=== PATIENT | female | born 1990 | race Native Hawaiian/Other Pacific Islander ===

== ENCOUNTER 2017-03-14 12:56 | Emergency (ER) | payer OTHER ==
[~2017-03-14] VITALS: Ht 157.5 cm; Wt 71.0 kg
[2017-03-14 12:59] VITALS: BP 119/72; PULSE 98; RESP 18; TEMP 98.6; O2SAT 100
--- NOTE | 2017-03-14 14:00 | PD ---
HPI Chief Complaint: Hvac Controls Technician Problem/Complaint Time Seen by Provider: 13:44 Travel History International Travel<30 days: No Contact w/Intl Traveler<30days: No Traveled to known affect area: No History of Present Illness HPI This is a 27-year-old female who presents to the emergency department with left lower quadrant abdominal pain that's been present for 7 months, constant, moderate severity having worsening over the past 2 days radiating to her flank now. She also reports urinary urgency and frequency. She denies any vaginal discharge or vaginal bleeding. She's been seen a back line cook and she had a laparoscopy for possible endometriosis and she was told that was normal. She subsequently had an ultrasound that demonstrated multiple ovarian cysts. She's had an ectopic in the past. She says she feels nauseous but hasn't vomited. PFSH Past Medical History Medical History: Denies Significant Hx ?: Unknown LMP: last month Social History Tobacco Use: No Allergies-Medications (Allergen,Severity, Reaction): Coded Allergies: No Known Allergies (Unverified , 03/14/17) Reported Meds & Prescriptions Reported Meds & Active Scripts Active Reported [ Control ] Review of Systems Except as stated in HPI: all other systems reviewed are Neg Physical Exam Narrative GENERAL:Well appearing, no acute distress SKIN: Focused skin assessment warm and dry. HEAD: Atraumatic. Normocephalic. EYES: Pupils equal and round. No injection or drainage. ENT: Moist mucous membranes NECK: Trachea midline. CARDIOVASCULAR: Regular rate and rhythm. No murmur appreciated. RESPIRATORY: Clear to auscultation. Breath sounds equal bilaterally. GASTROINTESTINAL: Abdomen soft, tender to palpation in the left lower quadrant with no rebound or guarding. ROAD CROSSING GUARD: No cervical motion tenderness or adnexal tenderness, no vaginal discharge MUSCULOSKELETAL: No obvious deformities. NEUROLOGICAL: Awake and alert. No obvious cranial nerve deficits. Moving all extremities. PSYCHIATRIC: Appropriate mood and affect; insight and judgment normal. Data Data Last Documented VS Vital Signs Date Time Temp Pulse Resp B/P (MAP) Pulse Ox O2 Delivery O2 Flow Rate FiO2 03/14/17 12:59 98.6 98 18 119/72 (88) 100 Room Air Orders Orders Complete Blood Count With Diff (03/14/17 13:55) Comprehensive Metabolic Panel (03/14/17 13:55) Ct Abd/Pel W/O Iv Contrast (03/14/17 ) Urinalysis - C+S If Indicated (03/14/17 13:55) Wet Prep Profile (03/14/17 13:55) Gc And Chlamydia Pcr (03/14/17 13:55) Ed Urine Pregnancytest Poc (03/14/17 13:55) Ketorolac Inj (Toradol Inj) (03/14/17 14:30) Ondansetron Inj (Zofran Inj) (03/14/17 14:30) Sodium Chlor 0.9% 1000 Ml Inj (Ns 1000 M (03/14/17 14:30) Labs Laboratory Tests Test 03/14/17 14:05 03/14/17 14:10 White Blood Count 8.8 TH/MM3 Red Blood Count 4.59 MIL/MM3 Hemoglobin 12.8 GM/DL Hematocrit 38.7 % Mean Corpuscular Volume 84.4 FL Mean Corpuscular Hemoglobin 27.9 PG Mean Corpuscular Hemoglobin Concent 33.0 % Red Cell Distribution Width 13.3 % Platelet Count 354 TH/MM3 Mean Platelet Volume 7.7 FL Neutrophils (%) (Auto) 56.1 % Lymphocytes (%) (Auto) 33.0 % Monocytes (%) (Auto) 6.4 % Eosinophils (%) (Auto) 3.4 % Basophils (%) (Auto) 1.1 % Neutrophils # (Auto) 5.0 TH/MM3 Lymphocytes # (Auto) 2.9 TH/MM3 Monocytes # (Auto) 0.6 TH/MM3 Eosinophils # (Auto) 0.3 TH/MM3 Basophils # (Auto) 0.1 TH/MM3 CBC Comment DIFF FINAL Differential Comment Urine Color YELLOW Urine Turbidity HAZY Urine pH 6.5 Urine Specific [place] 1.030 Urine Protein 30 mg/dL Urine Glucose (UA) NEG mg/dL Urine Ketones NEG mg/dL Urine Occult Blood NEG Urine Nitrite NEG Urine Bilirubin NEG Urine Urobilinogen 2.0 MG/DL Urine Leukocyte Esterase NEG Urine RBC 8 /hpf Urine WBC 3 /hpf Urine Squamous Epithelial Cells 4 /hpf Urine Calcium Oxalate Crystals MANY /hpf Urine Mucus MANY /lpf Microscopic Urinalysis Comment CULT NOT INDICATED Blood Urea Nitrogen 9 MG/DL Creatinine 0.85 MG/DL Random Glucose 83 MG/DL Total Protein 7.4 GM/DL Albumin 3.5 GM/DL Calcium Level 8.7 MG/DL Alkaline Phosphatase 66 U/L Aspartate Amino Transf (AST/SGOT) 17 U/L Alanine Aminotransferase (ALT/SGPT) 39 U/L Total Bilirubin 0.4 MG/DL Sodium Level 140 MEQ/L Potassium Level 3.8 MEQ/L Chloride Level 109 MEQ/L Carbon Dioxide Level 24.9 MEQ/L Anion Gap 6 MEQ/L Estimat Glomerular Filtration Rate 81 ML/MIN Clue Cells (Wet Prep) NONE SEEN Vaginal Trichomonas (Wet Prep) NONE SEEN Vaginal Yeast (Wet Prep) NONE SEEN MDM Medical Decision Making Medical Screen Exam Complete: Yes Emergency Medical Condition: Yes Interpretation(s) Afebrile, mild tachycardia, normotensive No leukocytosis Electrolytes are reassuring Urinalysis: No infection wet prep negative for trichomonas and yeast Differential Diagnosis No leukocytosis Electrolytes within normal limits Urinalysis: Calcium oxalate crystals, mucus and red blood cells Trichomonas is negative Yeast is negative Last 24 hours Impressions Abdomen/Pelvis CT 03/14/17 0000 Signed Impressions: Service Date/Time: , March 14, 2017 14:46 - CONCLUSION: Essentially unremarkable study. Dani Zaragoza MD Narrative Course This is a 27-year-old female who presents to the emergency department with left- sided abdominal pain that radiates to the back, its been going on since August but has been worse over the past 2 days. She does look uncomfortable on exam. Pelvic exam is reassuring. Labs are all normal. Urinalysis is negative for infection. CT abdomen and pelvis is unremarkable. I'm not sure what causing this patient's chronic abdominal pain. She's had a full ROAD CROSSING GUARD workup it might be reasonable for her to follow-up with a drill press operator. Patient was discharged on anti-inflammatories. Diagnosis Primary Impression: Chronic pelvic pain in female Patient Instructions: General Instructions Additional Instructions: If you develop severe or worsening abdominal pain, fever>100.4, persistent vomiting or inability to eat or drink return to the emergency department immediately. Follow up with your primary care physician in 1-2 days for a check-up. Med/Other Pt SpecificInfo: Prescription(s) given, No Change to Meds Scripts Naproxen (Naproxen) 500 Mg Tab 500 MG PO BID Y for PAIN SCALE 4 TO 10, #20 TAB 0 Refills Prov: Radha Matias MD 03/14/17 Disposition: 01 DISCHARGE HOME Condition: Stable Radha Matias MD Mar 14, 2017 14:00
[2017-03-14] MEDS ORDERED: BIRTH CONTROL (14:17)
[2017-03-14 14:18] VITALS: BP 121/75; PULSE 97; RESP 17; O2SAT 97
[2017-03-14 14:29] LABS: BASOPHIL # 0.1 TH/MM3 (0-0.2); BASOPHIL % 1.1 % (0.0-2.0); EOSINOPHIL # 0.3 TH/MM3 (0-0.4); EOSINOPHIL % 3.4 % (0.0-4.0); HEMATOCRIT 38.7 % (35.0-46.0); HEMO FLAGS DIFF FINAL; LYMPHOCYTE # 2.9 TH/MM3 (1.0-4.8); MEAN CELL VOLUME 84.4 FL (80.0-100.0); MEAN CORPUSCULAR HEMOGLOBIN 27.9 PG (27.0-34.0); MONO % 6.4 % (0.0-8.0); NEUT % 56.1 % (16.0-70.0); PLATELET COUNT 354 TH/MM3 (150-450); RED BLOOD COUNT 4.59 MIL/MM3 (4.00-5.30); RED CELL DISTRIBUTION WIDTH 13.3 % (11.6-17.2); WHITE BLOOD COUNT 8.8 TH/MM3 (4.0-11.0)
[2017-03-14] MEDS ORDERED: ONDANSETRON HCL 4 MG/2 ML VIAL IV ONE (14:30)
[2017-03-14] MEDS ORDERED: SODIUM CHLOR 0.9% 1000 ML INJ 1,000 ML IV SCH (14:30)
[2017-03-14] MEDS ORDERED: KETOROLAC TROMETHAMINE 30 MG/ML (IVP) VIAL IV PUSH ONE (14:30)
[2017-03-14 14:48] LABS: ALT (GPT) 39 U/L (10-53); ANION GAP 6 MEQ/L (5-15); AST (GOT) 17 U/L (15-37); BICARBONATE 24.9 MEQ/L (21.0-32.0); BLOOD UREA NITROGEN 9 MG/DL (7-18); CHLORIDE 109 MEQ/L (98-107); GLOMERULAR FILTRATION RATE 81 ML/MIN (>89); POTASSIUM 3.8 MEQ/L (3.5-5.1); SODIUM (NA) 140 MEQ/L (136-145)
[2017-03-14 14:51] LABS: ALKALINE PHOSPHATASE 66 U/L (45-117); TOTAL BILIRUBIN ADULT 0.4 MG/DL (0.2-1.0)
[2017-03-14 15:05] LABS: BLOOD, URINE NEG (NEG); CALCIUM OXALATE CRYSTALS,URINE MANY /hpf; COMMENT (UR) CULT NOT INDICATED; CULTURE IF INDICATED CULT NOT INDICATED; GLUCOSE,URINE NEG (NEG); KETONE, URINE NEG (NEG); MUCUS URINE MANY /lpf (OCC); NITRITE,URINE NEG (NEG); PH, URINE 6.5 (5.0-8.5); SQUAMOUS EPITHELIAL CELL URINE 4 /hpf (0-5); URINE COLOR YELLOW (YELLW/STRAW)
--- NOTE | 2017-03-14 15:07 | RADRPT ---
EXAM DATE/TIME: 03/14/2017 14:46 [facility] COMPARISON: No previous studies available for comparison. INDICATIONS : Left side abdominal pain ORAL CONTRAST: No oral contrast ingested. RADIATION DOSE: 7.51 CTDIvol (mGy) MEDICAL HISTORY : None SURGICAL HISTORY : None. ENCOUNTER: Initial ACUITY: 2 days PAIN SCALE: 5/10 LOCATION: Left flank TECHNIQUE: Volumetric scanning of the abdomen and pelvis was performed. Using automated exposure control and ad justment of the mA and/or kV according to patient size, radiation dose was kept as low as reasonably achievable to obtain optimal diagnostic quality images. DICOM format image data is available electro nically for review and comparison. FINDINGS: CT Abdomen: The liver, spleen, pancreas, kidneys, adrenals are unremarkable. There is no evidence for any appreciable pathological adenopathy, free fluid, or bowel obstruction. There is no evidence for any stones in the kidneys or the course of the ureters on either side. There is no hydronephrosis. CT pelvis: There is no evidence for mass, abscess formation, or any significant adenopathy within the pelvis. CONCLUSION: Essentially unremarkable study. Dani Zaragoza MD on March 14, 2017 at 15:00 Board Certified Radiologist. This report was verified electronically.
[2017-03-14] MEDS ORDERED: NAPR500T PO (15:34)
[2017-03-14 16:03] VITALS: BP 118/74
[2017-03-15 03:16] LABS: CHLAMYDIA PCR NOT DETECTED (NOT DETECT); NEISSERIA PCR NOT DETECTED (NOT DETECT)
== END 2017-03-14 15:56 | disposition home or self-care (01) ==
LOC: NEPD 12:56
DX: R10.2 Pelvic and perineal pain (principal); G89.29 Other chronic pain; R35.0 Frequency of micturition
CPT/HCPCS: 74176; 80053; 81001; 84703; 85025; 87210; 87491; 87591; 96361; 96374; 96375; 99285; J1885; J2405; J7030

== ENCOUNTER 2017-07-27 19:02 | Emergency (ER) | payer OTHER ==
[~2017-07-27] VITALS: Ht 157.5 cm; Wt 65.0 kg
[~2017-07-27 19:02] MED LIST: BIRTH CONTROL; NAPR500T2 PO
[2017-07-27] MEDS ORDERED: IOHEXOL 350 MG/ML 10 ML VIAL (for RAD DIAG) IVCONTRAST ONE (19:03)
[2017-07-27 19:16] VITALS: BP 121/72; PULSE 76; RESP 16; TEMP 96.6; O2SAT 98
[2017-07-27] MEDS ORDERED: PANTOPRAZOLE SODIUM 40 MG VIAL IV PUSH ONE (19:45)
[2017-07-27] MEDS ORDERED: ONDANSETRON HCL 4 MG/2 ML VIAL IV PUSH ONE (19:45)
[2017-07-27 19:47] VITALS: BP_SYST 117; BP_DIAS 14; BP_DIAS 74; PULSE 78; RESP 16; O2SAT 99
[2017-07-27 20:01] LABS: BACTERIA, URINE OCC /hpf; BILIRUBIN, URINE SMALL (NEG); BLOOD, URINE NEG (NEG); GLUCOSE,URINE NEG (NEG); KETONE, URINE 40 mg/dL (NEG); MUCUS URINE MANY /lpf (OCC); NITRITE,URINE NEG (NEG); PH, URINE 5.5 (5.0-8.5); SQUAMOUS EPITHELIAL CELL URINE 1 /hpf (0-5); URINE COLOR YELLOW (YELLW/STRAW); URINE LEUKOCYTE ESTERASE NEG (NEG)
[2017-07-27] MEDS ORDERED: SODIUM CHLOR 0.9% 1000 ML INJ 1,000 ML IV SCH (20:11)
[2017-07-27] MEDS ORDERED: MORPHINE SULFATE 4 MG/ML INJ IV PUSH ONE (20:15)
--- NOTE | 2017-07-27 20:18 | PD ---
HPI Chief Complaint: GI Complaint Time Seen by Provider: 19:24 Travel History International Travel<30 days: No Contact w/Intl Traveler<30days: No Traveled to known affect area: No History of Present Illness HPI 27-year-old female presents to emergency department complaining of vomiting for 1 week and diarrhea for 2 weeks. Patient states that on July 17 she vomited bright red blood but has not seen blood since. Patient describes her diarrhea as "spongy" in nonbloody. Patient denies hematochezia or melena. Patient states she has felt feverish recently. Says she has upper abdominal pain an lower pelvic pain that radiates to the symphysis pubis in genital region. Nothing seems to improve or relieve her pain. Says she had laparoscopic surgery at the end of June for ovarian cysts and endometriosis. Patient states that she had abdominal pain after the surgery he does not know if this a continuation of that pain. Patient had this procedure done at [facility] in [place]. Patient has not followed a primary care physician was not followed up with another physician for this problem. Patient takes metformin for PCO S but denies chronic medical issues. Patient denies recent travel, antibiotic use, new medications, new foods. PFSH Past Medical History Asthma: Yes Hypertension: Yes Reproductive: Yes (OVARIAN CYSTS, ENDOMETRIOSIS) Immunizations Current: Yes Tetanus Vaccination: < 5 Years Influenza Vaccination: No ?: Unknown LMP: 07/21/17 Past Surgical History Abdominal Surgery: Yes (EX LAP) Social History Alcohol Use: Yes (occ) Tobacco Use: Yes (occ) Substance Use: Yes (MARIJUANA) Allergies-Medications (Allergen,Severity, Reaction): Coded Allergies: aspirin (Verified Allergy, Severe, Anaphylaxis, 07/27/17) penicillin G (Verified Allergy, Severe, Anaphylaxis, 07/27/17) No Known Allergies (Unverified Allergy, Unknown, 07/27/17) Reported Meds & Prescriptions Reported Meds & Active Scripts Active Pepcid (Famotidine) 20 Mg Tab 20 Mg PO BID Zofran Odt (Ondansetron Odt) 4 Mg Tab 4 Mg SL Q8HR PRN Naproxen 500 Mg Tab 500 Mg PO BID PRN Reported [ Control ] Review of Systems Except as stated in HPI: all other systems reviewed are Neg Physical Exam Narrative GENERAL: Well-developed well-nourished in mild distress SKIN: Focused skin assessment warm/dry. Well healing lesion to the umbilical consistent with patient's recent laparoscopic surgery HEAD: Atraumatic. Normocephalic. EYES: Pupils equal and round. No scleral icterus. No injection or drainage. ENT: No nasal bleeding or discharge. Mucous membranes pink and moist. NECK: Trachea midline. No JVD. CARDIOVASCULAR: Regular rate and rhythm. No murmur appreciated. RESPIRATORY: No accessory muscle use. Clear to auscultation. Breath sounds equal bilaterally. GASTROINTESTINAL: Abdomen soft, non-tender, nondistended. Mild TTP midepigastric and lower pelvic region MUSCULOSKELETAL: No obvious deformities. No clubbing. No cyanosis. No edema. No CVA tenderness NEUROLOGICAL: Awake and alert. No obvious cranial nerve deficits. Motor grossly within normal limits. Normal speech. PSYCHIATRIC: Appropriate mood and affect; insight and judgment normal. Data Data Last Documented VS Vital Signs Date Time Temp Pulse Resp B/P (MAP) Pulse Ox O2 Delivery O2 Flow Rate FiO2 07/28/17 02:49 07/28/17 01:17 68 14 07/27/17 23:04 99 Room Air 07/27/17 19:16 96.6 Orders Orders Urinalysis - C+S If Indicated (07/27/17 19:31) Ed Urine Pregnancytest Poc (07/27/17 19:31) Ondansetron Inj (Zofran Inj) (07/27/17 19:45) Pantoprazole Inj (Protonix Inj) (07/27/17 19:45) Complete Blood Count With Diff (07/27/17 20:11) Comprehensive Metabolic Panel (07/27/17 20:11) Lipase (07/27/17 20:11) Prothrombin Time / Inr (Pt) (07/27/17 20:11) Act Partial Throm Time (Ptt) (07/27/17 20:11) Ct Abd/Pel W Iv Contrast(Rout) (07/27/17 20:11) Morphine Inj (Morphine Inj) (07/27/17 20:15) Sodium Chlor 0.9% 1000 Ml Inj (Ns 1000 M (07/27/17 20:11) Electrocardiogram (07/27/17 20:11) Influenzae A/B Antigen (07/27/17 20:20) Promethazine Inj (Phenergan Inj) (07/27/17 23:00) Iohexol 350 Inj (Omnipaque 350 Inj) (07/27/17 19:03) Sodium Chlor 0.9% 1000 Ml Inj (Ns 1000 M (07/28/17 01:15) Ed Discharge Order (07/28/17 02:32) Labs Laboratory Tests Test 07/27/17 19:43 07/27/17 20:39 Urine Color YELLOW Urine Turbidity CLEAR Urine pH 5.5 Urine Specific [place] 1.027 Urine Protein 30 mg/dL Urine Glucose (UA) NEG mg/dL Urine Ketones 40 mg/dL Urine Occult Blood NEG Urine Nitrite NEG Urine Bilirubin SMALL Urine Urobilinogen 2.0 MG/DL Urine Leukocyte Esterase NEG Urine RBC 1 /hpf Urine WBC 1 /hpf Urine Squamous Epithelial Cells 1 /hpf Urine Bacteria OCC /hpf Urine Mucus MANY /lpf Microscopic Urinalysis Comment CULT NOT INDICATED White Blood Count 9.1 TH/MM3 Red Blood Count 5.01 MIL/MM3 Hemoglobin 13.8 GM/DL Hematocrit 42.0 % Mean Corpuscular Volume 83.8 FL Mean Corpuscular Hemoglobin 27.5 PG Mean Corpuscular Hemoglobin Concent 32.8 % Red Cell Distribution Width 14.3 % Platelet Count 270 TH/MM3 Mean Platelet Volume 8.3 FL Neutrophils (%) (Auto) 48.9 % Lymphocytes (%) (Auto) 41.8 % Monocytes (%) (Auto) 5.7 % Eosinophils (%) (Auto) 2.8 % Basophils (%) (Auto) 0.8 % Neutrophils # (Auto) 4.5 TH/MM3 Lymphocytes # (Auto) 3.8 TH/MM3 Monocytes # (Auto) 0.5 TH/MM3 Eosinophils # (Auto) 0.3 TH/MM3 Basophils # (Auto) 0.1 TH/MM3 CBC Comment DIFF FINAL Differential Comment Prothrombin Time 10.4 SEC Prothromb Time International Ratio 1.0 RATIO Activated Partial Thromboplast Time 22.4 SEC Blood Urea Nitrogen 10 MG/DL Creatinine 0.89 MG/DL Random Glucose 74 MG/DL Total Protein 8.0 GM/DL Albumin 4.2 GM/DL Calcium Level 9.6 MG/DL Alkaline Phosphatase 86 U/L Aspartate Amino Transf (AST/SGOT) 20 U/L Alanine Aminotransferase (ALT/SGPT) 24 U/L Total Bilirubin 0.7 MG/DL Sodium Level 140 MEQ/L Potassium Level 3.8 MEQ/L Chloride Level 105 MEQ/L Carbon Dioxide Level 25.1 MEQ/L Anion Gap 10 MEQ/L Estimat Glomerular Filtration Rate 77 ML/MIN Lipase 103 U/L [facility] Medical Decision Making Medical Screen Exam Complete: Yes Emergency Medical Condition: Yes Differential Diagnosis C. difficile, traveler's diarrhea, influenza, abdominal abscess, rival syndrome Narrative Course 27-year-old female presents to emergency department complaining of vomiting for 1 week and diarrhea for 2 weeks. Patient states that on July 17 she vomited bright red blood but has not seen blood since. Patient describes her diarrhea as "spongy" in nonbloody. Patient denies hematochezia or melena. Patient states she has felt feverish recently. Says she has upper abdominal pain an lower pelvic pain that radiates to the symphysis pubis in genital region. Nothing seems to improve or relieve her pain. Says she had laparoscopic surgery at the end of June for ovarian cysts and endometriosis. Patient states that she had abdominal pain after the surgery he does not know if this a continuation of that pain. Patient had this procedure done at [facility] in [place]. Patient has not followed a primary care physician was not followed up with another physician for this problem. Patient takes metformin for PCO S but denies chronic medical issues. Patient denies recent travel, antibiotic use, new medications, new foods. Vital signs stable. Patient received Zofran, Phenergan, morphine, Protonix in the emergency department today. She also received IV fluids. Laboratory Tests Test 07/27/17 19:43 07/27/17 20:39 Urine Color YELLOW Urine Turbidity CLEAR Urine pH 5.5 Urine Specific [place] 1.027 Urine Protein 30 mg/dL Urine Glucose (UA) NEG mg/dL Urine Ketones 40 mg/dL Urine Occult Blood NEG Urine Nitrite NEG Urine Bilirubin SMALL Urine Urobilinogen 2.0 MG/DL Urine Leukocyte Esterase NEG Urine RBC 1 /hpf Urine WBC 1 /hpf Urine Squamous Epithelial Cells 1 /hpf Urine Bacteria OCC /hpf Urine Mucus MANY /lpf Microscopic Urinalysis Comment CULT NOT INDICATED White Blood Count 9.1 TH/MM3 Red Blood Count 5.01 MIL/MM3 Hemoglobin 13.8 GM/DL Hematocrit 42.0 % Mean Corpuscular Volume 83.8 FL Mean Corpuscular Hemoglobin 27.5 PG Mean Corpuscular Hemoglobin Concent 32.8 % Red Cell Distribution Width 14.3 % Platelet Count 270 TH/MM3 Mean Platelet Volume 8.3 FL Neutrophils (%) (Auto) 48.9 % Lymphocytes (%) (Auto) 41.8 % Monocytes (%) (Auto) 5.7 % Eosinophils (%) (Auto) 2.8 % Basophils (%) (Auto) 0.8 % Neutrophils # (Auto) 4.5 TH/MM3 Lymphocytes # (Auto) 3.8 TH/MM3 Monocytes # (Auto) 0.5 TH/MM3 Eosinophils # (Auto) 0.3 TH/MM3 Basophils # (Auto) 0.1 TH/MM3 CBC Comment DIFF FINAL Differential Comment Prothrombin Time 10.4 SEC Prothromb Time International Ratio 1.0 RATIO Activated Partial Thromboplast Time 22.4 SEC Blood Urea Nitrogen 10 MG/DL Creatinine 0.89 MG/DL Random Glucose 74 MG/DL Total Protein 8.0 GM/DL Albumin 4.2 GM/DL Calcium Level 9.6 MG/DL Alkaline Phosphatase 86 U/L Aspartate Amino Transf (AST/SGOT) 20 U/L Alanine Aminotransferase (ALT/SGPT) 24 U/L Total Bilirubin 0.7 MG/DL Sodium Level 140 MEQ/L Potassium Level 3.8 MEQ/L Chloride Level 105 MEQ/L Carbon Dioxide Level 25.1 MEQ/L Anion Gap 10 MEQ/L Estimat Glomerular Filtration Rate 77 ML/MIN Lipase 103 U/L Labs appears stable. CT and dispo pending as of transfer of care to Dr. Hicks. Please see his note for more information. Scripts Famotidine (Pepcid) 20 Mg Tab 20 MG PO BID, #60 TAB 0 Refills Prov: Edis Hicks MD 07/28/17 Ondansetron Odt (Zofran Odt) 4 Mg Tab 4 MG SL Q8HR Y for Nausea/Vomiting, #30 TAB 0 Refills Prov: Edis Hicks MD 07/28/17 Condition: Stable Hetal Slater Jul 27, 2017 20:18
[2017-07-27 21:10] LABS: AUTOMATED NEUTROPHIL # 4.5 TH/MM3 (1.8-7.7); BASOPHIL # 0.1 TH/MM3 (0-0.2); BASOPHIL % 0.8 % (0.0-2.0); EOSINOPHIL # 0.3 TH/MM3 (0-0.4); EOSINOPHIL % 2.8 % (0.0-4.0); HEMOGLOBIN 13.8 GM/DL (11.6-15.3); LYMPH % 41.8 % (9.0-44.0); LYMPHOCYTE # 3.8 TH/MM3 (1.0-4.8); MEAN CELL VOLUME 83.8 FL (80.0-100.0); MEAN CORPUSCULAR HEMOGLOBIN 27.5 PG (27.0-34.0); MEAN CORPUSCULAR HGB CONC 32.8 % (32.0-36.0); MEAN PLATELET VOLUME 8.3 FL (7.0-11.0); MONO % 5.7 % (0.0-8.0); MONOCYTE # 0.5 TH/MM3 (0-0.9); NEUT % 48.9 % (16.0-70.0); PLATELET COUNT 270 TH/MM3 (150-450); RED BLOOD COUNT 5.01 MIL/MM3 (4.00-5.30); RED CELL DISTRIBUTION WIDTH 14.3 % (11.6-17.2); WHITE BLOOD COUNT 9.1 TH/MM3 (4.0-11.0)
[2017-07-27 21:23] LABS: PROTHROMBIN TIME - PATIENT 10.4 SEC (9.8-11.6)
[2017-07-27 21:30] LABS: ALBUMIN 4.2 GM/DL (3.4-5.0); ALKALINE PHOSPHATASE 86 U/L (45-117); ALT (GPT) 24 U/L (10-53); AST (GOT) 20 U/L (15-37); BICARBONATE 25.1 MEQ/L (21.0-32.0); BLOOD UREA NITROGEN 10 MG/DL (7-18); CALCIUM 9.6 MG/DL (8.5-10.1); CHLORIDE 105 MEQ/L (98-107); CREATININE 0.89 MG/DL (0.50-1.00); GLOMERULAR FILTRATION RATE 77 ML/MIN (>89); GLUCOSE,RANDOM 74 MG/DL (74-106); LIPASE 103 U/L (73-393); SODIUM (NA) 140 MEQ/L (136-145); TOTAL BILIRUBIN ADULT 0.7 MG/DL (0.2-1.0)
[2017-07-27 22:00] VITALS: BP 98/64; PULSE 72; RESP 16; O2SAT 98
[2017-07-27] MEDS ORDERED: PROMETHAZINE INJ 25 MG/ML VIAL IV-CENTRAL ONE (23:00)
[2017-07-27 23:04] VITALS: BP 105/68; PULSE 73; RESP 16; O2SAT 99
--- NOTE | 2017-07-28 00:24 | RADRPT ---
EXAM DATE/TIME: 07/27/2017 23:55 [facility] COMPARISON: CT ABDOMEN & PELVIS W/O CONTRAST, March 14, 2017, 14:46. INDICATIONS : Abdomen pain with vomiting. IV CONTRAST: 90 cc Omnipaque 350 (iohexol) IV ORAL CONTRAST: No oral contrast ingested. RADIATION DOSE: 8.62 CTDIvol (mGy) MEDICAL HISTORY : Hypertension. Asthma SURGICAL HISTORY : None. ENCOUNTER: Initial ACUITY: 1 week PAIN SCALE: 5/10 LOCATION: Bilateral abdomen TECHNIQUE: Volumetric scanning of the abdomen and pelvis was performed. Using automated exposure control and ad justment of the mA and/or kV according to patient size, radiation dose was kept as low as reasonably achievable to obtain optimal diagnostic quality images. DICOM format image data is available electro nically for review and comparison. FINDINGS: LOWER LUNGS: The visualized lower lungs are clear. LIVER: Homogeneous density without lesion. There is no dilation of the biliary tree. No calcified gallston es. SPLEEN: Normal size without lesion. PANCREAS: Within normal limits. KIDNEYS: Normal in size and shape. There is no mass, stone or hydronephrosis. ADRENAL GLANDS: Within normal limits. VASCULAR: There is no aortic aneurysm. BOWEL/MESENTERY: The stomach, small bowel, and colon demonstrate no acute abnormality. There is no free intraperitone al air or fluid. ABDOMINAL WALL: Within normal limits. RETROPERITONEUM: There is no lymphadenopathy. BLADDER: No wall thickening or mass. REPRODUCTIVE: Within normal limits. INGUINAL: There is no lymphadenopathy or hernia. MUSCULOSKELETAL: Within normal limits for patient age. CONCLUSION: Normal examination. Mikhail Rodrigez MD on July 28, 2017 at 0:18 Board Certified Radiologist. This report was verified electronically.
[2017-07-28] MEDS ORDERED: SODIUM CHLOR 0.9% 1000 ML INJ 1,000 ML IV ONE (01:15)
[2017-07-28 01:17] VITALS: BP 91/50; PULSE 68; RESP 14
[2017-07-28] MEDS ORDERED: ZOFR4TAB3 SL (02:32)
[2017-07-28] MEDS ORDERED: FAMO1TAB37 PO (02:32)
--- NOTE | 2017-07-28 02:32 | PD ---
Physical Exam Narrative Patient signed out to me at shift change by NAILA Fong, pending CT abdomen and pelvis. Patient has a history of having diarrhea for the past 3 weeks, patient' s significant other has diarrhea predating that for at least a month. Patient has no history of antibiotic use, no international travel. Patient significant other diarrhea sounds very similar to this patient's presentation. Patient did have a vomiting episode with some blood production on July 13, has vomited since but has not had any hematemesis. Patient has had no melena or hematochezia by history. Laboratory examinations reviewed, no significant abnormalities. CT abdomen and pelvis as read by radiology has no significant abnormalities. Patient received IV fluids, is now tolerating by mouth and feels largely improved. Prolonged discussion with patient and patient's significant other, patient will be given materials to collect stool at home for stool O&P and culture as an outpatient. No current treatment indicated. Data Data Last Documented VS Vital Signs Date Time Temp Pulse Resp B/P (MAP) Pulse Ox O2 Delivery O2 Flow Rate FiO2 07/28/17 01:17 68 14 91/50 (64) 07/27/17 23:04 99 Room Air 07/27/17 19:16 96.6 Orders Orders Urinalysis - C+S If Indicated (07/27/17 19:31) Ed Urine Pregnancytest Poc (07/27/17 19:31) Ondansetron Inj (Zofran Inj) (07/27/17 19:45) Pantoprazole Inj (Protonix Inj) (07/27/17 19:45) Complete Blood Count With Diff (07/27/17 20:11) Comprehensive Metabolic Panel (07/27/17 20:11) Lipase (07/27/17 20:11) Prothrombin Time / Inr (Pt) (07/27/17 20:11) Act Partial Throm Time (Ptt) (07/27/17 20:11) Ct Abd/Pel W Iv Contrast(Rout) (07/27/17 20:11) Morphine Inj (Morphine Inj) (07/27/17 20:15) Sodium Chlor 0.9% 1000 Ml Inj (Ns 1000 M (07/27/17 20:11) Electrocardiogram (07/27/17 20:11) Influenzae A/B Antigen (07/27/17 20:20) Promethazine Inj (Phenergan Inj) (07/27/17 23:00) Iohexol 350 Inj (Omnipaque 350 Inj) (07/27/17 19:03) Sodium Chlor 0.9% 1000 Ml Inj (Ns 1000 M (07/28/17 01:15) Labs Laboratory Tests Test 07/27/17 19:43 07/27/17 20:39 Urine Color YELLOW Urine Turbidity CLEAR Urine pH 5.5 Urine Specific [place] 1.027 Urine Protein 30 mg/dL Urine Glucose (UA) NEG mg/dL Urine Ketones 40 mg/dL Urine Occult Blood NEG Urine Nitrite NEG Urine Bilirubin SMALL Urine Urobilinogen 2.0 MG/DL Urine Leukocyte Esterase NEG Urine RBC 1 /hpf Urine WBC 1 /hpf Urine Squamous Epithelial Cells 1 /hpf Urine Bacteria OCC /hpf Urine Mucus MANY /lpf Microscopic Urinalysis Comment CULT NOT INDICATED White Blood Count 9.1 TH/MM3 Red Blood Count 5.01 MIL/MM3 Hemoglobin 13.8 GM/DL Hematocrit 42.0 % Mean Corpuscular Volume 83.8 FL Mean Corpuscular Hemoglobin 27.5 PG Mean Corpuscular Hemoglobin Concent 32.8 % Red Cell Distribution Width 14.3 % Platelet Count 270 TH/MM3 Mean Platelet Volume 8.3 FL Neutrophils (%) (Auto) 48.9 % Lymphocytes (%) (Auto) 41.8 % Monocytes (%) (Auto) 5.7 % Eosinophils (%) (Auto) 2.8 % Basophils (%) (Auto) 0.8 % Neutrophils # (Auto) 4.5 TH/MM3 Lymphocytes # (Auto) 3.8 TH/MM3 Monocytes # (Auto) 0.5 TH/MM3 Eosinophils # (Auto) 0.3 TH/MM3 Basophils # (Auto) 0.1 TH/MM3 CBC Comment DIFF FINAL Differential Comment Prothrombin Time 10.4 SEC Prothromb Time International Ratio 1.0 RATIO Activated Partial Thromboplast Time 22.4 SEC Blood Urea Nitrogen 10 MG/DL Creatinine 0.89 MG/DL Random Glucose 74 MG/DL Total Protein 8.0 GM/DL Albumin 4.2 GM/DL Calcium Level 9.6 MG/DL Alkaline Phosphatase 86 U/L Aspartate Amino Transf (AST/SGOT) 20 U/L Alanine Aminotransferase (ALT/SGPT) 24 U/L Total Bilirubin 0.7 MG/DL Sodium Level 140 MEQ/L Potassium Level 3.8 MEQ/L Chloride Level 105 MEQ/L Carbon Dioxide Level 25.1 MEQ/L Anion Gap 10 MEQ/L Estimat Glomerular Filtration Rate 77 ML/MIN Lipase 103 U/L [facility] Medical Record Reviewed: Yes Supervised Visit with IVAN: Yes Differential Diagnosis Acute gastroenteritis, infectious diarrhea, clinical dehydration Narrative Course see narrative. Diagnosis Primary Impression: Gastroenteritis Additional Impression: Dehydration Patient Instructions: Dehydration (ED), Gastroenteritis (ED), General Instructions Additional Instruction: Zofran 4 mg ODT for nausea/vomiting. Pepcid 20 mg twice daily for increased acid production in stomach. Collect stool sample as discussed, bring to her doctor for studies. Drink plenty of fluids, advance diet slowly as tolerated. Avoid dairy and spicy foods. Return promptly for worsening Scripts Famotidine (Pepcid) 20 Mg Tab 20 MG PO BID, #60 TAB 0 Refills Prov: Edis Hicks MD 07/28/17 Ondansetron Odt (Zofran Odt) 4 Mg Tab 4 MG SL Q8HR Y for Nausea/Vomiting, #30 TAB 0 Refills Prov: Edis Hicks MD 07/28/17 Disposition: DISCHARGE HOME Condition: Stable Edis Hicks MD Jul 28, 2017 02:32
--- NOTE | 2017-07-28 13:43 | EKG ---
Date Performed: 07/27/2017 Time Performed: 20:39:54 PTAGE: 27 years EKG: Sinus rhythm WITH SINUS ARRHYTHMIA NORMAL ECG NO PREVIOUS TRACING DOCTOR: Jemal Rojas Interpretating Date/Time 07/28/2017 13:41:19
== END 2017-07-28 02:49 | disposition home or self-care (01) ==
LOC: NEPC 19:02
DX: K52.9 Noninfective gastroenteritis and colitis, unspecified (principal); E86.0 Dehydration; I10 Essential (primary) hypertension; J45.909 Unspecified asthma, uncomplicated; Z98.890 Other specified postprocedural states; Z72.0 Tobacco use; Z88.0 Allergy status to penicillin; Z88.8 Allergy status to other drugs, medicaments and biological substances
CPT/HCPCS: 74177; 80053; 81001; 83690; 84703; 85025; 85610; 85730; 87804; 93005; 96361; 96374; 96375; 99285; C9113; J2270; J2405; J2550; J7030; Q9967